=== PATIENT | male | born 1960 | race Caucasian/White ===

== ENCOUNTER 2016-04-05 14:20 | Emergency (ER) | payer BC ==
[2016-04-05] MEDS ORDERED: LORAZEPAM INJ 2 MG/1 ML VIAL IV ONE (15:49)
[2016-04-05] MEDS ORDERED: KETOROLAC TROMETHAMINE INJ/PF 30 MG/1 ML SDV IV ONE (15:49)
[2016-04-05] MEDS ORDERED: NORMAL SALINE 1000 ML 1,000 ML IV ONE (15:56)
--- NOTE | 2016-04-05 16:54 | ER Document Report ---
ED General - General Chief Complaint: Seizure Stated Complaint: POSSIBLE SEIZURE Notes: Patient is a 56-year-old male with past medical history of hypertension and chronic alcohol abuse who presents after having a witnessed tonic-clonic seizure just prior to arrival. His coworker states that the patient was sitting in the passenger seat of the truck when he became unresponsive and had approximate 45 second seizure. This was followed by a postictal phase. Patient arrives in no distress, back at baseline and denies any complaints. Admits that he has had several similar episodes in the past. Admits to heavy daily alcohol use but has not drank in the past 36 hours due to a heavy work schedule. States that he has had seizures in the past and he does not drink alcohol. He has not seen his primary care physician regarding today's concerns. Denies any obvious additional triggers for his episode and states that these symptoms have resolved spontaneously. No trauma during the event. Denies any recent fevers, headache, neck pain, chest pain, shortness of breath, weakness or numbness. Past Medical History - General Information source: Patient - Social History Smoking Status: Current Every Day Smoker Frequency of alcohol use: Heavy Drug Abuse: None Lives with: Spouse/Significant other Family History: Reviewed & Not Pertinent Review of Systems - Review of Systems Notes: Constitutional: Negative for fever. HENT: Negative for sore throat. Eyes: Negative for visual changes. Cardiovascular: Negative for chest pain. Respiratory: Negative for shortness of breath. Gastrointestinal: Negative for abdominal pain, vomiting or diarrhea. Genitourinary: Negative for dysuria. Musculoskeletal: Negative for back pain. Skin: Negative for rash. Neurological: Negative for headaches, weakness or numbness. Positive for a seizure prior to arrival 10 point ROS negative except as marked above and in HPI. Physical Exam - Vital signs Vitals: Resp Pulse Ox 18 96 04/05/16 14:30 04/05/16 14:30 Interpretation: Hypertensive Notes: PHYSICAL EXAMINATION: GENERAL: Appears older than stated age. Tremulous but in no acute distress HEAD: Atraumatic, normocephalic. EYES: Pupils equal round and reactive to light, extraocular movements intact, sclera anicteric, conjunctiva are normal. ENT: nares patent, oropharynx clear without exudates. Moist mucous membranes. NECK: Normal range of motion, supple without lymphadenopathy LUNGS: Breath sounds clear to auscultation bilaterally and equal. No wheezes rales or rhonchi. HEART: Regular rate and rhythm without murmurs ABDOMEN: Soft, nontender, normoactive bowel sounds. No guarding, no rebound. No masses appreciated. EXTREMITIES: Normal range of motion, no pitting or edema. No cyanosis. NEUROLOGICAL: Resting tremor. Face symmetric. Tongue protrudes midline. Extraocular motions intact. Pupils are 2 mm and equally reactive. Normal speech, normal gait. 5 out of 5 strength in both the distal and proximal upper and lower extremities bilaterally. Sensation is grossly intact throughout. Finger to nose testing normal. Pronator drift normal.. PSYCH: Normal mood, normal affect. SKIN: Warm, Dry, normal turgor, no rashes or lesions noted. Course - Re-evaluation Re-evalutation: 04/05/16 23:29 Clinical history is most consistent with an alcohol withdrawal seizure. The patient has returned to baseline without intervention. No focal neurologic deficits. No infectious symptoms, vital sign abnormalities, or evidence of trauma. No indication for laboratories or imaging based on reassuring evaluation and clear history of chronic alcohol abuse and history of seizures with abstinence from alcohol. I've encouraged patient to be given a Librium taper to come off alcohol and have prescribed this medication.At this time will discharge with return precautions and follow-up recommendations. Verbal discharge instructions given a the bedside and opportunity for questions given. Medication warnings reviewed. Patient is in agreement with this plan and has verbalized understanding of return precautions and the need for primary care follow-up in the next 24-72 hours. - Vital Signs Vital signs: Temp Pulse Resp BP Pulse Ox 15 159/110 H 100 04/05/16 17:01 04/05/16 17:01 04/05/16 17:01 Discharge - Discharge Clinical Impression: Alcohol withdrawal seizure Qualifiers: Complication of substance-induced condition: uncomplicated Qualified Code(s): F10.230 - Alcohol dependence with withdrawal, uncomplicated Condition: Good Disposition: HOME, SELF-CARE Additional Instructions: You have been sent home on medication to help withdraw from alcohol. You should only start taking this medication and discontinue alcohol if you are seroius about quitting alcohol. This will not completely remove all your symptoms from withdrawal should make it so that your symptoms are more manageable. You need to return to the emergency room immediately if you pass out, or vomiting so severely your unable to keep anything down, start hallucinate, or have any other symptoms that are of concern to you. You need to go to an inpatient program and should speak with your primary care doctor regarding these resources. How to take the librium to come off alcohol. DO NOT DRINK ANY ALCOHOL WHILE USING THIS MEDICATION Day 1-3: 75mg PO TID Day 4-6: 50mg PO TID Day 7-9: 25mg PO TID Day 10-12: 25mg PO BID Day 13-15: 25mg PO daily PRN Prescriptions: Chlordiazepoxide HCl [Librium 25 mg Capsule] 1 cap PO ASDIR #75 capsule Forms: Elevated Blood Pressure
[2016-04-05 17:24] VITALS: BP 159/110
== END 2016-04-05 17:30 | disposition home or self-care (01) ==
LOC: ER 14:20
DX: F10.239 Alcohol dependence with withdrawal, unspecified (principal); R56.9 Unspecified convulsions; R25.1 Tremor, unspecified; F17.200 Nicotine dependence, unspecified, uncomplicated; I10 Essential (primary) hypertension
CPT/HCPCS: 99284; 96361; 96374; 96375; J1885; J2060; J7030